=== PATIENT | male | born 1965 | race Caucasian/White ===

== ENCOUNTER → 2016-12-19 | Outpatient (CLI) | payer BC, OTHER ==
--- NOTE | 2016-12-19 18:59 | DX ---
Left Thumb, Three Views History: Pain post trauma. Drill injury today. Findings: No fracture or dislocation is identified. Joint spaces are well maintained. No soft tissue or intra-articular gas is identified. No radiopaque foreign material is identified. Impression: Nothing acute identified.
== END ==
LOC: BMCIMAGING 18:20
PROVIDERS: ATTEND Family Medicine
DX: S69.92XA Unspecified injury of left wrist, hand and finger(s), initial encounter (principal)